=== PATIENT | female | born 1985 | race Caucasian/White ===

== ENCOUNTER 2018-11-16 10:56 | Emergency (ER) | payer OTHER ==
[~2018-11-16] VITALS: Ht 154.9 cm; Wt 91.6 kg
[2018-11-16 11:02] VITALS: BP 128/81; Ht 154.9 cm; Wt 91.6 kg
== END 2018-11-16 13:05 | disposition home or self-care (01) ==
LOC: ED 10:56
DX: G89.29 Other chronic pain (principal); M54.5 Low back pain
CPT/HCPCS: J1885